=== PATIENT | male | born 1940 | race Caucasian/White ===

== ENCOUNTER 2019-08-09 14:10 | Emergency (ER) | payer MEDICARE, BC ==
--- OUTSIDE RECORDS SUMMARY | 2019-08-09 14:55 | XMS REPORT | Continuity of Care Document ---
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 20+ pack Unknown year cigarettes. Pipe x 30 years Smoking Status Reviewed: 03/04/19 Patient is a former smoker Quit 2001. 20+ pack year cigarettes. Pipe x 30 years Allergies, Adverse Reactions, Alerts Active Allergies Reaction Severity Comments Date Penicillin 02/27/2005 Medications Active Medications SIG Qnty Indications Ordering Provider Date Naproxen take one tablet 30tabs M25.511 Malina Florian 06/27/2019 500mg Tablets by mouth twice MD Harry daily as needed with food Baclofen 1 every night at 15tabs M25.511 Malina Florian 06/27/2019 10mg Tablets bedtime as MD Harry needed muscle spasm Atorvastatin Calcium 1 by mouth every 30tabs E78.2 Malina Florian 2018 20mg day MD Harry Tablets Vitamin B-12 1 by mouth every D51.9 Malina Florian 01/28/2019 500mcg day MD Harry Tablets [facility] H[facility]30 [facility]ina 11/03/2015 MD Harry Ranitidine HCL Take One Tablet 90tabs K21.9 [facility] 11/03/2015 300mg By Mouth Every M, Tablets Night AT Bedtime Propranolol HCL ER 1 by mouth every 90caps G25.0 [facility] Malina 2012 60mg night at bedtime MD Harry Caps ER 24HR for tremors prn Levothyroxine Sodium Take One Tablet 90tabs E89.0 [facility] Malina 2011 By Mouth Once MD Harry 88mcg Tablets Daily E03.9 Nystatin Swish And Swallow 1 900units Jeremy Florianher 07/15/2010 [id number] Teapsoonful (5 MLS) MD Harry Suspension Two Times A Day History Medications Perforomist Inhale Contents Of 120units J44.9 Raul Hernandez, 02/19/2019 - One Vial By HELADIO 03/04/2019 20mcg/2ML Nebulizer Nebulization Two Times A Day Medications Administered in Office Medication SIG Qnty Indications Ordering Provider Date B-12 Injection TraboutKemal MD 11/20/2013 Injection Immunizations CPT Code Status Date Vaccine Lot # [id number] Given 06/06/2019 Influenza Vac, Quadrivalent, Split, 0.5mL Dosage, [id number] Im Use 79124 Given 05/16/2018 Influenza Vac, Quadrivalent, Split, 0.5mL Dosage, [id number] Im Use 37422 Given 05/06/2018 Shingrix (Shingles) Zoster Vaccine HZV, Recombinant, Subunit, Adj 13861 Given 04/26/2018 Shingrix (Shingles) Zoster Vaccine HZV, Recombinant, Subunit, Adj 26721 Given 01/28/2018 Shingrix (Shingles) Zoster Vaccine HZV, Recombinant, Subunit, Adj 23471 Given 01/28/2018 Shingrix (Shingles) Zoster Vaccine HZV, Recombinant, Subunit, Adj 61061 Given 07/23/2017 Pneumococcal 23 Immunization Adult Or [id number] Immunosuppressed Patient 96068 Given 05/23/2017 Influenza Vac, Quadrivalent, Split, 0.5mL Dosage, [id number] Im Use 46592 Given 07/18/2016 Prevnar 13 Pneumococal Conjugate Vaccine [id number] 75604 Given 06/01/2016 Influenza Vac, Quadrivalent, Split, 0.5mL Dosage, [id number] Im Use 30533 Given 05/19/2015 Influenza Vac, Quadrivalent, Split, 0.5mL Dosage, [id number] Im Use 75054 Given 05/13/2014 Tdap (Adacel) Ages 7 And Above Only [id number] 21334 Given 05/13/2014 Tdap (Adacel) Ages 7 And Above Only [id number] Given 05/13/2014 Fluzone Trivalent Immunization [id number] Q2038 Given 05/13/2014 Fluzone Trivalent Immunization [id number] Q2038 Given 05/08/2013 Fluzone Trivalent Immunization [id number] Q2038 Given 05/20/2012 Fluzone Trivalent Immunization [id number] Q2038 Given 05/31/2011 Fluzone Trivalent Immunization [id number] 83616 Given 07/18/2010 Afluria Or Fluvirin Flu Vac Intramuscular [id number] 21335 Given 04/19/2009 Afluria Or Fluvirin Flu Vac Intramuscular [id number] 34167 Given 05/25/2008 Afluria Or Fluvirin Flu Vac Intramuscular [id number] 89087 Given 05/22/2007 Afluria Or Fluvirin Flu Vac Intramuscular [id number] 08226 Given 06/15/2006 Afluria Or Fluvirin Flu Vac Intramuscular 83465 Given 06/15/2006 Afluria Or Fluvirin Flu Vac Intramuscular [id number] 29702 Given 05/23/2005 Afluria Or Fluvirin Flu Vac Intramuscular [id number] 37780 Given 05/18/2004 Afluria Or Fluvirin Flu Vac Intramuscular 29207 Given 05/27/2003 Pneumococcal 23 Immunization Adult Or Immunosuppressed Patient 74069 Given 05/27/2003 Afluria Or Fluvirin Flu Vac Intramuscular 67389 Given 06/13/2002 Afluria Or Fluvirin Flu Vac Intramuscular Vital Signs Date Vital Result Comment 06/27/2019 8:59am Weight 177.00 lb Heart Rate 80 /min BP Systolic 134 mmHg BP Diastolic 80 mmHg Height 74 inches 6'2" BMI (Body Mass Index) 22.7 kg/m2 03/04/2019 3:35pm Weight 178.00 lb Heart Rate 88 /min BP Systolic 120 mmHg BP Diastolic 88 mmHg Height 74 inches 6'2" BMI (Body Mass Index) 22.9 kg/m2 Results Test Acquired Date Facility Test Result H/L Range Note CBC with Auto Diff-[facility]cmg 01/28/2019 [facility] WBC 6.9 K/uL 4.1-11.0 1 RBC 5.04 M/uL 4.60-6.10 Hemoglobin 16.6 gm/dL 13.5-18.0 Hematocrit 47.8 % 41.0-53.0 MCV 94.9 fL 80.0-97.0 MCH 32.9 pg High 27.0-32.0 MCHC 34.6 g/dL 32.0-36.0 RDW 13.7 % 11.5-14.5 PLT Count 184 K/ul 140-400 MPV 8.9 FL 7.1-10.7 Neutrophil 67.9 % 35.0-75.0 Lymphocyte 16.2 % 16.0-52.0 Monocyte 9.9 % 2.0-10.0 Eosinophil 5.0 % 0.0-5.0 Basophil 1.0 % 0.0-4.0 Abs Neutrophils 4.7 K/uL 2.1-8.0 Abs Lymphocytes 1.1 K/uL 0.8-5.5 Abs Monocytes 0.7 K/uL 0.1-1.0 Abs Eosinophils 0.3 K/uL 0.0-0.5 Abs Basophils 0.1 K/uL 0.0-0.3 Comprehensive Met Panel-[facility] 01/28/2019 [facility] Sodium 142 mmol/L 135- 146 2 Potassium 4.4 mmol/L 3.5-5.2 Chloride# 106 mmol/L 97-110 3 Carbon Dioxide 23 mmol/L Low 24-34 Calcium 9.5 mg/dL 8.5-10.5 4 Glucose 85 mg/dL 70-105 BUN 20 mg/dL 6-26 Creatinine 1.0 mg/dL 0.5-1.4 Total Protein 6.9 g/dL 6.0-8.0 Albumin 4.2 g/dL 3.6-4.9 Globulin 2.7 g/dL 2.0-3.5 A/G Ratio 1.6 Ratio 1.0-2.2 Total Bilirubin 1.0 mg/dL 0.1-1.3 Alkaline Phosphatase 62 U/L 24-140 Alt 8 U/L 3-42 Ast 14 U/L 8-42 Anion Gap 13 mmol/L 5-15 5 Female Egfr 56 Low >60 6 Male Egfr 75 >60 7 Lipid 01/28/2019 [facility] Cholesterol 212 mg/dL High 50-199 Triglycerides 104 mg/dL 30-200 HDL 42 mg/dL 29-71 8 Chol/ HDL Ratio 5.1 ratio 4.0-6.7 VLDL 21 mg/dL 2-29 LDL (Calc) 149 mg/dL High 20-99 9 Laboratory test finding 01/28/2019 [facility] Magnesium 2.2 mg/dL 1.5-2.7 TSH 2.06 uIU/mL 0.35-4.94 Vitamin B12 648 pg/mL 180-914 1 This sample is drawn by:JAMES. 2 Updated reference range on new analyzer 3 Updated reference range on new analyzer 4 Updated reference range 12-04-2018 5 Updated Reference Range 6 Concerning GFR Guidelines for Americans: Normal function or mild renal disease, if clinically at risk: >/= 60 mL/min Moderately decreased: 30-59 Severely decreased: 15-29 Renal failure: <15 There is reduced accuracy above 60ml/min/1.73 m squared, but the numeric value may be clinically useful in the near 60 range 7 Concerning GFR Guidelines: Normal function or mild renal disease, if clinically at risk: >/= 60 mL/min Moderately decreased: 30-59 Severely decreased: 15-29 Renal failure: <15 There is reduced accuracy above 60ml/min/1.73 m squared, but the numeric value may be clinically useful in the near 60 range Glomerular Filtration Rate (GFR) is estimated based on the CKD-EPI equation, which assumes a steady state for creatinine as recommended by the National Kidney Disease Education Program in conjunction with the National Institutes of Health and the National Kidney Foundation. Clinical conditions in which it may be necessary to measure GFR by using clearance methods include extremes of age and body size, severe malnutrition or obesity, diseases of skeletal muscle, paraplegia or quadriplegia, vegetarian diet, rapidly changing kidney function, and calculation of the dose of potentially toxic drugs that are excreted by the kidneys. 8 Per NCEP ATP III Guidelines: Results lower than 40 mg/dL are suggestive of increased risk for coronary artery disease. Results > or = to 60 mg/dL are considered a negative risk factor. 9 Per NCEP ATP III Guidelines: Normal Population <130 Patients with medical conditions: CHD/DM Optimal: <100 Borderline high: 130-159 High: 160-189 Very high: >189 Procedures Date Code Description Status 01/28/2019 51743 Electrocardiogram Complete Completed 10/27/2013 93559716 Colonoscopy Completed Medical Devices Description No Information Available Encounters Type Date Location Provider Dx Diagnosis Office Visit 03/04/2019 Malina Shin J47.9 Bronchiectasis, 3:30p MD Harry uncomplicated R76.11 Nonspecific reaction to skin test w/o active tuberculosis R09.02 Hypoxemia E78.2 Mixed hyperlipidemia Office Visit 01/28/2019 8:30a Malina Shin Z00.01 Encounter for MD Harry general adult medical exam w abnormal findings J44.9 Chronic obstructive pulmonary disease, unspecified C15.9 Malignant neoplasm of esophagus, unspecified I71.2 Thoracic aortic aneurysm, without rupture E03.9 Hypothyroidism, unspecified E78.2 Mixed hyperlipidemia G25.0 Essential tremor K21.9 Gastro-esophageal reflux disease without esophagitis I49.3 Ventricular premature depolarization D51.9 Vitamin B12 deficiency anemia, unspecified R03.0 Elevated blood-pressure reading, w/o diagnosis of htn J98.4 Other disorders of lung Z13.31 Encounter for screening for depression Assessments Date Code Description Provider 06/27/2019 M25.511 Pain in RIGHT shoulder Malina Florian MD 06/06/2019 Z23 Encounter for immunization Malina Florian MD 03/04/2019 J47.9 Bronchiectasis, uncomplicated Malina Florian MD 03/04/2019 R76.11 Nonspecific reaction to tuberculin skin test Malina Florian MD without active tuberculosis 03/04/2019 R09.02 Hypoxemia Malina Florian MD 03/04/2019 E78.2 Mixed hyperlipidemia Malina Florian MD 01/28/2019 Z00.01 Encounter for general adult medical Malina Florian MD examination with abnorma 01/28/2019 J44.9 Chronic obstructive pulmonary disease, Malina Florian MD unspecified 01/28/2019 C15.9 Malignant neoplasm of esophagus, unspecified Malina Florian MD 01/28/2019 I71.2 Thoracic aortic aneurysm, without rupture Malina Florian MD 01/28/2019 E03.9 Hypothyroidism, unspecified Malina Florian MD 01/28/2019 E78.2 Mixed hyperlipidemia Malina Florian MD 01/28/2019 G25.0 Essential tremor Malina Florian MD 01/28/2019 K21.9 Gastro-esophageal reflux disease without Malina Florian MD esophagitis 01/28/2019 I49.3 Ventricular premature depolarization Malina Florian MD 01/28/2019 D51.9 Vitamin B12 deficiency anemia, unspecified Malina Florian MD 01/28/2019 R03.0 Elevated blood-pressure reading, without Malina Florian MD diagnosis of hypert 01/28/2019 J98.4 Other disorders of lung Malina Florian MD 01/28/2019 Z13.31 Encounter for screening for depression Malina Florian MD 01/28/2019 E03.9 Hypothyroidism, unspecified [facility] Plan of Treatment Future Appointment(s):08/01/2019 8:15 am - Malina Florian MD at [id number] - Malina Florian,MDM25.511 Pain in RIGHT shoulderNew Medication: Naproxen 500 mg - take one tablet by mouth twice daily as needed with foodBaclofen 10 mg - 1 every night at bedtime as needed muscle spasmNew Orders: Physical Therapy, Ordered: 06/27/19Follow up:[facility] xray and PT Functional Status Description No Information Available Mental Status Description No Information Available Referrals Refer to Reason for Referral Status Appt Date Ray Snell MD scarring/inflammaotry changes in his lungs Closed 03/04 than prev-reassure nothing that looks like cancer, and since I've tried and few diff puffers to be complete I'd really like the input of a ANALYSIS DIRECTOR, no critical serrano, end/summer. early fall ok 02/25-SCHEDULED [place] [address] [phone] Sri Oropeza 01/28-SCHEDULED WITH PAUL WHILE IN OFFICE SO IS Closed DEF AWARE OF APPT-AA [address] [place] [id number] [phone]
--- NOTE | 2019-08-09 15:09 | ED ---
GI/ HPI - HPI Summary HPI Summary: This pt is a 79 y/o male, accompanied by daughter, presenting to [facility] c/o nausea and vomiting since 5 days ago. Pt reports hx of esophageal CA and had a stomach pull-up done to reconstruct his esophagus. Pt states he has a very small stomach. Patient denies hematemesis. Pt reports he has been having progressively smaller bowel movements in the last few days since Sunday (). Additionally notes he feels SOB and has been feeling intermittently warm and cold. Denies fever, diarrhea. PMHx: high cholesterol for which he takes Atorvastatin, thyroid for which he takes levothyroxine. Allergic to Penicillin. Medications reviewed. Allergies noted. - History of Current Complaint Chief Complaint: EDNauseaVomitDiarrh Time Seen by Provider: 08/09/19 15:00 Stated Complaint: VOMITING PER PT DAUGHTER Hx Obtained From: Patient Onset/Duration: Started Days Ago, Still Present Timing: Lasting Days Current Severity: None Pain Intensity: 0 - denies any pain Associated Signs and Symptoms: Positive: Nausea, Vomiting, Other: - POSITIVE: SOB. Negative: Fever, Chills, Abdominal Pain Aggravating Factor(s): Nothing Alleviating Factor(s): Nothing - Allergy/Home Medications Allergies/Adverse Reactions: Allergies Allergy/AdvReac Type Severity Reaction Status Date / Time Penicillins Allergy Blisters Verified 08/09/19 14:44 PMH/Surg Hx/FS Hx/Imm Hx Endocrine/Hematology History: Reports: Hx Thyroid Disease Cardiovascular History: Reports: Hx Hypercholesterolemia - Cancer History Cancer Type, Location and Year: Esophageal CA - Surgical History Surgical History: Yes Surgery Procedure, Year, and Place: Stomach pull-up Infectious Disease History: No Infectious Disease History: Denies: Traveled Outside the [place] in Last 30 Days - Family History Known Family History: Positive: Non-Contributory - Social History Alcohol Use: Occasionally Substance Use Type: Reports: None Smoking Status (MU): Former Smoker Review of Systems Positive: Chills. Negative: Fever Positive: Shortness Of Breath Positive: Vomiting, Nausea. Negative: Diarrhea All Other Systems Reviewed And Are Negative: Yes Physical Exam - Summary Physical Exam Summary: Constitutional: Well-developed, Well-nourished, Alert. (-) Distressed Skin: Warm, Dry HENT: Normocephalic; Atraumatic Eyes: Conjunctiva normal Neck: Musculoskeletal ROM normal neck. (-) JVD, (-) Stridor, (-) Tracheal deviation. Stoma in place and swallowing secretions. Cardio: Rhythm regular, rate normal, Heart sounds normal; Intact distal pulses; The pedal pulses are 2+ and symmetric. Radial pulses are 2+ and symmetric. (-) Murmur Pulmonary/Chest wall: Effort normal. (-) Respiratory distress, (-) Wheezes, (-) Rales Abd: Soft, No tenderness, No Distension. Large surgical incision on abdomen. Musculoskeletal: (-) Edema Lymph: (-) Cervical adenopathy Neuro: Alert, Oriented x3 Psych: Mood and affect Normal Triage Information Reviewed: Yes Vital Signs On Initial Exam: Initial Vitals Temp Pulse Resp BP Pulse Ox 99.3 F 100 19 152/116 91 08/09/19 14:39 08/09/19 14:39 08/09/19 14:39 08/09/19 14:39 08/09/19 14:39 Vital Signs Reviewed: Yes Procedures - Sedation Patient Received Moderate/Deep Sedation with Procedure: No Diagnostics - Vital Signs Vital Signs Temp Pulse Resp BP Pulse Ox 08/09/19 14:39 99.3 F 100 19 152/116 91 - Laboratory Result Diagrams: 08/09/19 15:41 08/09/19 15:41 Lab Statement: Any lab studies that have been ordered have been reviewed, and results considered in the medical decision making process. - CT Chest/Abdomen/Pelvis CT CT Interpretation Completed By: Radiologist Summary of CT Findings: IMPRESSION: Patient is status post tracheostomy with presumed esophageal pull-through. Pleural thickening is noted in the right apex with pleural parenchymal scarring in the right apex. Low density lesions in the liver likely represent cysts although some are too small to accurately characterize and small solid lesions are not excluded. The spleen is normal in size. No evidence of bowel obstruction is noted. Diverticulosis without definite evidence of diverticulitis is noted. Dr. Gerard has reviewed this report. Re-Evaluation - Re-Evaluation First Eval Re-Evaluation Time: 17:22 Comment: Reviewed results with patient. GIGU Course/Dx - Course Course Of Treatment: Patient is here with 5 days of nausea and vomiting. Patient has a history of esophageal cancer and stomach pull up surgery 18 years ago. Patient has no tenderness on exam. Patient is having small bowel movements including today. Patient had blood performed which grossly unremarkable. Patient had a CT scan which showed no acute abnormality. Patient was able to tolerate by mouth while in the ED. Patient is discharged with PCP follow-up and Reglan for nausea control. - Diagnoses Provider Diagnoses: Vomiting Discharge ED - Sign-Out/Discharge Documenting (check all that apply): Patient Departure - Discharge home - Discharge Plan Condition: Stable Disposition: HOME Prescriptions: Metoclopramide TAB* [Reglan TAB*] 5 mg PO Q8H #12 tab Patient Education Materials: Acute Nausea and Vomiting (ED) Referrals: Malina Wolf MD [Primary Care Provider] - Additional Instructions: Take nausea medications as prescribed. PLEASE RETURN TO EMERGENCY DEPARTMENT IF YOU'RE UNABLE TO TOLERATE ANYTHING BY MOUTH FOR 12 HOURS, WORSENING ABDOMINAL PAIN, NO BOWEL MOVEMENT IN 2 DAYS, IF YOU DON'T URINATE IN 12 HOURS. Please follow up with your primary care physician in 1-3 days. - Billing Disposition and Condition Condition: STABLE Disposition: Home - Attestation Statements Document Initiated by Casey: Yes Documenting Galenibe: Kelsie Rodriguez Provider For Whom Casey is Documenting (Include Credential): Reji Gerard MD Scribe Attestation: Kelsie Ferguson, scribed for Reji Gerard MD on 08/09/19 at 1843. Scribe Documentation Reviewed: Yes Provider Attestation: The documentation as recorded by the Kelsie aguilar accurately reflects the service I personally performed and the decisions made by me, Reji Gerard MD Status of Scribe Document: Viewed
[2019-08-09] MEDS ORDERED: Ondansetron INJ* 2 MG/ML VIAL IV ONE (15:14)
[2019-08-09] MEDS ORDERED: NS 0.9% 1000 ML** 1,000 ML IV ONE (15:14)
[2019-08-09 15:58] LABS: ABS Lymphocytes 0.3 10^3/ul (1.0-4.8); ABS Monocytes 0.7 10^3/ul (0-0.8); Hematocrit 47 % (42-52); Hemoglobin 16.7 g/dL (14.0-18.0); Lymphocyte % 4.6 %; Mean Corpuscular HGB Conc 36 g/dL (31-36); Mean Corpuscular Hemoglobin 32 pg (27-31); Mean Corpuscular Volume 90 fL (80-94); Mean Platelet Volume 7.9 fL (7.4-10.4); Nucleated Red Blood Cells % 0.1; Platelet Count 157 10^3/uL (150-450); Red Blood Count 5.16 10^6 /uL (4.18-5.48); Red Cell Distribution Width 14 % (10-15)
[2019-08-09 16:09] LABS: Albumin 4.1 g/dL (3.2-5.2); Albumin/Globulin Ratio 1.2 (1-3); BUN/Creatinine Ratio 33.7 (8-20); Calcium 9.2 mg/dL (8.6-10.3); EGFR African American 86.7 (>60); EGFR Non-African American 71.6 (>60); Globulin 3.3 g/dL (2-4); Total Protein 7.4 g/dL (6.4-8.9)
[2019-08-09] MEDS ORDERED: Iohexol 300* (CONTRAST) 10 ML SDV IV ONE (16:13)
[2019-08-09] MEDS ORDERED: Metoclopramide IV* 5 MG/ML 2 ML VIAL IV ONE (17:27)
[2019-08-09 18:12] VITALS: BP 155/102
== END 2019-08-09 18:10 | disposition home or self-care (01) ==
LOC: ED 14:10
DX: R11.10 Vomiting, unspecified (principal); K57.90 Diverticulosis of intestine, part unspecified, without perforation or abscess without bleeding; Z93.0 Tracheostomy status; E78.00 Pure hypercholesterolemia, unspecified; E03.9 Hypothyroidism, unspecified; Z85.01 Personal history of malignant neoplasm of esophagus; Z87.891 Personal history of nicotine dependence; Z79.890 Hormone replacement therapy; Z79.899 Other long term (current) drug therapy; Z88.0 Allergy status to penicillin
CPT/HCPCS: 36415; 71260; 74177; 80053; 83690; 85025; 96361; 96374; 96375; 99282; J2405; J2765; Q9967